=== PATIENT | male | born 1965 | race Caucasian/White ===

== ENCOUNTER 2021-01-04 23:35 | Inpatient (IN) | payer OTHER, BC ==
[2021-01-05] MEDS ORDERED: Ondansetron PF 4 MG/2 ML Vial ONE ×2 (01:17→15:25)
[2021-01-05] MEDS ORDERED: Morphine 4 MG/ML VIAL ONE (01:17)
[2021-01-05 01:39] LABS: ALT (SGPT) 18 U/L (8-55); AST (SGOT) 19 U/L (5-34); Albumin 3.8 g/dL (3.5-5.0); Alkaline Phosphatase 50 U/L (40-110); Anion Gap 12 mmol/L (10-20); BUN (Urea Nitrogen) 19 mg/dL (8.4-25.7); Bilirubin, Total 0.4 mg/dL (0.2-1.2); Calc. Creatinine Clearance 0 mL/min (70-130); Calcium 9.2 mg/dL (7.8-10.44); Carbon Dioxide 23 mmol/L (22-29); Chloride 104 mmol/L (98-107); Globulin 2.8 g/dL (2.4-3.5); Glucose 124 mg/dL (70-105); Potassium 3.6 mmol/L (3.5-5.1); Protein, Total 6.6 g/dL (6.0-8.3); Sodium 135 mmol/L (136-145)
[2021-01-05 01:41] LABS: #Eosinphils 0.1 thou/uL (0.0-0.7); #Lymphocytes 1.5 thou/uL (1.20-3.40); #Monocytes 1.3 thou/uL (0.11-0.59); #Neutrophils 11.7 thou/uL (1.40-6.50); %Basophils 0.3 % (0.0-1.0); %Eosinophils 0.6 % (0.0-10.0); %Lymphocytes 10.3 % (21.0-51.0); %Monocytes 8.9 % (0.0-10.0); Hemoglobin 15.5 g/dL (14.0-18.0); Mean Corpuscular Hemoglobin 32.7 pg (27.0-31.0); Mean Corpuscular Volume 90.7 fL (78.0-98.0); Platelet Count 254 thou/uL (130-400); RBC Distribution Width 11.9 % (11.5-14.5); Red Blood Cell (RBC) Count 4.73 mill/uL (4.70-6.10); White Blood Cell (WBC) Count 14.6 thou/uL (4.8-10.8)
[2021-01-05] MEDS ORDERED: Ondansetron PF 4 MG/2 ML Vial IVP PRN (02:11)
[2021-01-05] MEDS ORDERED: Dextrose 5% in Water 1,000 ML IV PRN (02:11)
[2021-01-05] MEDS ORDERED: Insulin Regular 300 UNITS/3 ML VIAL SC PRN ×2 (02:11)
[2021-01-05] MEDS ORDERED: hydrALAZINE 20 MG/ML VIAL SLOW IVP PRN (02:11)
[2021-01-05] MEDS ORDERED: Dextrose 50% Abboject 50 ML SYRINGE SLOW IVP PRN (02:11)
[2021-01-05] MEDS ORDERED: traMADol HCl 50 MG TAB PO PRN (02:15)
[2021-01-05] MEDS ORDERED: Cyclobenzaprine 10 MG TAB PO PRN (02:15)
[2021-01-05] MEDS: Acetaminophen 500 MG TAB PO SCH ×4 (05:10→23:09)
[2021-01-05] MEDS: Ibuprofen 200 MG TAB PO SCH ×3 (05:11→20:44)
[2021-01-05] MEDS: traMADol HCl 50 MG TAB PO PRN ×2 (05:12→23:08)
[2021-01-05] MEDS: Morphine 4 MG/ML VIAL SLOW IVP PRN ×2 (05:56→08:48)
[2021-01-05 07:01] LABS: SARS-CoV-2 NAA Rapid Test Not Detected (NotDetected)
[2021-01-05] MEDS: Sodium Chloride 0.9% 1,000 ML IV SCH ×3 (07:28→23:12)
[2021-01-05 07:48] VITALS: BMI 32.1
[2021-01-05] MEDS: Gabapentin 300 MG CAP PO SCH ×3 (07:57→20:43)
[2021-01-05] MEDS: Famotidine 20 MG TAB PO SCH ×2 (07:57→20:43)
[2021-01-05] MEDS ORDERED: ceFAZolin Sodium/D5W 2 GM in Premix Bag 1 BAG IVPB SCH ×2 (09:00→22:00)
[2021-01-05] MEDS: Senokot S 8.6-50 MG TAB PO SCH ×2 (11:15→20:44)
[2021-01-05] MEDS: Polyethylene Glycol 3350 17 GM Packet PO SCH (11:15)
[2021-01-05] MEDS ORDERED: ceFAZolin 2 GM/DEX 5% 100 ML BAG ONE (14:06)
[2021-01-05] MEDS ORDERED: Bupivacaine PF 0.5% 30 ML VIAL ONE (14:59)
[2021-01-05] MEDS ORDERED: Neomycin-Polymyxin 1 ML AMP ONE (14:59)
[2021-01-05] MEDS ORDERED: Fentanyl 100 MCG/2 ML VIAL ONE (15:22)
[2021-01-05] MEDS ORDERED: PROPOFOL 200 MG/20 ML VIAL ONE (15:25)
[2021-01-05] MEDS ORDERED: Lidocaine 1% PF 5 ML VIAL ONE (15:25)
[2021-01-05] MEDS: CEFAZOLIN 2 GM in Premix Bag 1 BAG IVPB SCH (20:45)
[2021-01-06] MEDS: Ibuprofen 200 MG TAB PO SCH ×3 (04:54→20:38)
[2021-01-06] MEDS: Acetaminophen 500 MG TAB PO SCH ×3 (04:54→17:34)
[2021-01-06] MEDS: CEFAZOLIN 2 GM in Premix Bag 1 BAG IVPB SCH ×2 (04:55→14:10)
[2021-01-06 05:38] LABS: #Lymphocytes 1.2 thou/uL (1.20-3.40); #Monocytes 1.2 thou/uL (0.11-0.59); %Basophils 0.1 % (0.0-1.0); %Eosinophils 0.2 % (0.0-10.0); %Lymphocytes 7.2 % (21.0-51.0); %Monocytes 7.4 % (0.0-10.0); Hemoglobin 14.5 g/dL (14.0-18.0); Mean Corpuscular HGB CONC 32.5 g/dL (32.0-36.0); Mean Corpuscular Hemoglobin 30.2 pg (27.0-31.0); Mean Platelet Volume 8.2 fL (7.4-10.4); Platelet Count 268 thou/uL (130-400); RBC Distribution Width 11.9 % (11.5-14.5); Red Blood Cell (RBC) Count 4.78 mill/uL (4.70-6.10); White Blood Cell (WBC) Count 16.5 thou/uL (4.8-10.8)
[2021-01-06 06:05] LABS: Anion Gap 14 mmol/L (10-20); BUN (Urea Nitrogen) 23 mg/dL (8.4-25.7); Calc. Creatinine Clearance 97 mL/min (70-130); Carbon Dioxide 22 mmol/L (22-29); Chloride 104 mmol/L (98-107); Glucose 139 mg/dL (70-105); Magnesium 2.1 mg/dL (1.6-2.6); Phosphorus 4.9 mg/dL (2.3-4.7); Potassium 4.4 mmol/L (3.5-5.1); Sodium 136 mmol/L (136-145)
[2021-01-06] MEDS: Polyethylene Glycol 3350 17 GM Packet PO SCH (08:44)
[2021-01-06] MEDS: Senokot S 8.6-50 MG TAB PO SCH ×2 (08:44→20:38)
[2021-01-06] MEDS: Famotidine 20 MG TAB PO SCH ×2 (08:44→20:38)
[2021-01-06] MEDS: Gabapentin 300 MG CAP PO SCH ×3 (08:45→20:38)
[2021-01-06] MEDS: traMADol HCl 50 MG TAB PO PRN ×2 (08:50→16:27)
[2021-01-06] MEDS ORDERED: Enoxaparin Sodium 40 MG/0.4 ML SYRINGE SC SCH (13:30)
[2021-01-07] MEDS: Acetaminophen 500 MG TAB PO SCH ×3 (00:17→13:47)
[2021-01-07] MEDS: Ibuprofen 200 MG TAB PO SCH ×2 (05:07→13:46)
[2021-01-07] MEDS ORDERED: Enoxaparin Sodium 40 MG/0.4 ML SYRINGE SC SCH (09:00)
[2021-01-07] MEDS ORDERED: Loratadine 10 MG TAB PO SCH (09:00)
[2021-01-07] MEDS ORDERED: DULoxetine 60 MG CAP PO SCH (09:00)
[2021-01-07] MEDS: Gabapentin 300 MG CAP PO SCH ×2 (09:53→15:33)
[2021-01-07] MEDS: Famotidine 20 MG TAB PO SCH (09:53)
[2021-01-07] MEDS: traMADol HCl 50 MG TAB PO PRN (09:54)
[2021-01-07] MEDS: Senokot S 8.6-50 MG TAB PO SCH (09:57)
[2021-01-07] MEDS: Polyethylene Glycol 3350 17 GM Packet PO SCH (09:57)
[2021-01-07 16:50] VITALS: BP 152/64; TEMP 98.1
[2021-01-07] MEDS ORDERED: Simvastatin 10 MG TAB PO SCH (17:00)
== END 2021-01-07 16:40 | disposition home or self-care (01) | DRG 494 ==
LOC: ERS 23:35 → SURG B 01-05 02:16
PROVIDERS: ADMIT Specialist; ATTEND Specialist
PROC: 0QSG04Z Reposition Right Tibia with Internal Fixation Device, Open Approach (ICD-10-PCS; principal; 2021-01-05)
DX: S82.841A Displaced bimalleolar fracture of right lower leg, initial encounter for closed fracture (principal); S82.831A Other fracture of upper and lower end of right fibula, initial encounter for closed fracture; W19.XXXA Unspecified fall, initial encounter; E10.9 Type 1 diabetes mellitus without complications; I10 Essential (primary) hypertension; G47.33 Obstructive sleep apnea (adult) (pediatric); F41.9 Anxiety disorder, unspecified; Z20.822 Contact with and (suspected) exposure to COVID-19; Z90.49 Acquired absence of other specified parts of digestive tract; Y92.39 Other specified sports and athletic area as the place of occurrence of the external cause; Z98.52 Vasectomy status
CPT/HCPCS: 29515; 36415; 36416; 71045; 76000; 80048; 80053; 80307; 83735; 84100; 85025; 93005; 96374; 96375; C1713; G0390; J0690; J1650; J2270; J2405; J2704; J3010; J7050; S0020; U0002

== ENCOUNTER 2021-06-23 10:23 | Day surgery (SDC) | payer BC ==
[2021-06-18 12:39] VITALS: BMI 29.0
[2021-06-23] MEDS ORDERED: Levofloxacin 500 mg/D5W 100 ml Premix Bag ONE (11:29)
[2021-06-23] MEDS ORDERED: Clindamycin/D5W 900 mg/50 ml Premix Bag ONE (11:59)
[2021-06-23] MEDS ORDERED: Midazolam HCl 2 mg/2 ml Vial ONE (12:10)
[2021-06-23] MEDS ORDERED: Fentanyl 100 MCG/2 ML VIAL ONE ×3 (12:10→13:44)
[2021-06-23] MEDS ORDERED: Ondansetron PF 4 MG/2 ML Vial ONE (12:49)
[2021-06-23] MEDS ORDERED: Dexamethasone 20 MG/5 ML VIAL ONE (12:49)
[2021-06-23] MEDS ORDERED: PROPOFOL 200 MG/20 ML VIAL ONE (12:49)
[2021-06-23] MEDS ORDERED: PHENYLEPHRINE-NS 100 MCG/ML 10 ML SYRINGE ONE (12:49)
[2021-06-23] MEDS ORDERED: Ropivacaine 0.5% HCl/PF (150 MG/30 ML VIAL) ONE (12:49)
[2021-06-23] MEDS ORDERED: Lidocaine 1% PF 5 ML VIAL ONE (12:49)
[2021-06-23] MEDS ORDERED: Bupivacaine PF 0.5% 30 ML VIAL ONE (13:57)
== END 2021-06-23 15:45 | disposition home or self-care (01) ==
LOC: SDC 10:23
PROVIDERS: ATTEND Orthopaedic Surgery
PROC: 0QSG04Z Reposition Right Tibia with Internal Fixation Device, Open Approach (ICD-10-PCS; principal; 2021-06-23)
PROC: 0SPF04Z Removal of Internal Fixation Device from Right Ankle Joint, Open Approach (ICD-10-PCS; principal; 2021-06-23)
PROC: 3E0T3BZ Introduction of Anesthetic Agent into Peripheral Nerves and Plexi, Percutaneous Approach (ICD-10-PCS; principal; 2021-06-23)
PROC: 0QUG07Z Supplement Right Tibia with Autologous Tissue Substitute, Open Approach (ICD-10-PCS; principal; 2021-06-23)
DX: S82.841K Displaced bimalleolar fracture of right lower leg, subsequent encounter for closed fracture with nonunion (principal); T84.84XA Pain due to internal orthopedic prosthetic devices, implants and grafts, initial encounter; E10.9 Type 1 diabetes mellitus without complications; I10 Essential (primary) hypertension; G47.33 Obstructive sleep apnea (adult) (pediatric); Z79.84 Long term (current) use of oral hypoglycemic drugs; Z79.899 Other long term (current) drug therapy; Z88.0 Allergy status to penicillin; Z96.41 Presence of insulin pump (external) (internal); X58.XXXD Exposure to other specified factors, subsequent encounter; Y79.1 Therapeutic (nonsurgical) and rehabilitative orthopedic devices associated with adverse incidents
CPT/HCPCS: 76000; C1713; J1100; J1956; J2250; J2405; J2704; J2795; J3010; J3490; S0020

== ENCOUNTER 2023-05-18 08:30 | Inpatient (IN) | payer BC ==
[2023-05-18 09:11] LABS: Hemoglobin 14.3 g/dL (13.5-17.5); Mean Corpuscular HGB CONC 35.8 g/dL (32.0-36.0); Mean Corpuscular Hemoglobin 31.5 pg (27.0-33.0); Mean Corpuscular Volume 88.1 fl (81.2-95.1); Mean Platelet Volume 10.8 fl (7.4-10.4); Platelet Count 196 10x3/uL (150-450); RBC Distribution Width 12.4 % (11.5-14.5); Red Blood Cell (RBC) Count 4.54 10x6/uL (4.32-5.72); White Blood Cell (WBC) Count 6.2 10x3/uL (3.5-10.5)
[2023-05-18 09:46] LABS: Anion Gap 13 mmol/L (10-20); BUN (Urea Nitrogen) 20 mg/dL (8.4-25.7); Calc. Creatinine Clearance 0 mL/min (70-130); Calcium 8.8 mg/dL (7.8-10.44); Carbon Dioxide 23 mmol/L (22-29); Chloride 108 mmol/L (98-107); Estimated GFR 100; Glucose 172 mg/dL (70-105); Potassium 3.9 mmol/L (3.5-5.1); Sodium 140 mmol/L (136-145)
[2023-05-19] MEDS ORDERED: Albumin 5% 500 ML ONE (06:40)
[2023-05-19] MEDS ORDERED: PHENYLEPHRINE-NS 100 MCG/ML 10 ML SYRINGE ONE (06:40)
[2023-05-19] MEDS ORDERED: Midazolam HCl 2 mg/2 ml Vial ONE ×4 (07:02→11:19)
[2023-05-19] MEDS ORDERED: Heparin 10,000 UNITS/1 ML VIAL 30,000 UNITS in Sodium Chloride 0.9% 1,000 ML FS SCH (07:15)
[2023-05-19] MEDS ORDERED: Fentanyl 250 MCG/5 ML VIAL ONE ×2 (07:28→09:18)
[2023-05-19] MEDS ORDERED: PROPOFOL 20 ML ONE ×2 (07:28→09:17)
[2023-05-19] MEDS ORDERED: CEFAZOLIN 2 GM VIAL ONE (07:30)
[2023-05-19] MEDS ORDERED: Sodium Chloride 0.9% 100 ML ONE (07:30)
[2023-05-19] MEDS ORDERED: Aminocaproic Acid 5 GM/20 ML VIAL ONE (08:17)
[2023-05-19] MEDS ORDERED: Cardioplegic Soln 1,000 ML BAG ONE (08:17)
[2023-05-19] MEDS ORDERED: Magnesium 5 GM/10 ML VIAL ONE (08:17)
[2023-05-19] MEDS ORDERED: Lidocaine 2% PF 100 mg/5 ml Syringe ONE (08:17)
[2023-05-19] MEDS ORDERED: Thrombin 5000 UNITS/5 ML VIAL ONE (08:17)
[2023-05-19] MEDS ORDERED: Heparin 30,000 units/30 ml VIAL ONE (08:17)
[2023-05-19] MEDS ORDERED: Mannitol 12.5 GM/50 ML ONE (08:17)
[2023-05-19] MEDS ORDERED: Protamine Sulfate 250 MG/25 ML VIAL ONE (08:17)
[2023-05-19] MEDS ORDERED: Potassium Chloride 60 mEq (30 mL) VIAL ONE (08:17)
[2023-05-19] MEDS ORDERED: Heparin 5,000 UNITS/ML VIAL ONE (08:17)
[2023-05-19] MEDS ORDERED: Calcium Chloride 1 GM/10 ML Abboject SYRINGE ONE (08:17)
[2023-05-19] MEDS ORDERED: Sodium Bicarb 50 mEq/50 ML VIAL ONE (08:17)
[2023-05-19] MEDS ORDERED: Papaverine 60 MG/2 ML VIAL ONE (08:17)
[2023-05-19] MEDS ORDERED: Vancomycin 1 GM VIAL ONE (08:17)
[2023-05-19] MEDS ORDERED: Esmolol 100 MG/10 ML VIAL ONE (08:17)
[2023-05-19] MEDS ORDERED: Insulin Regular 300 UNITS/3 ML VIAL ONE (08:31)
[2023-05-19] MEDS ORDERED: Rocuronium Bromide 10 MG/ML (10ML VIAL) ONE (09:38)
[2023-05-19] MEDS ORDERED: Bisacodyl 5 MG TAB PO PRN (11:28)
[2023-05-19] MEDS ORDERED: niCARdipine 25 MG in Sodium Chloride 0.9% 250 ML 250 ML IVPB PRN (11:28)
[2023-05-19] MEDS ORDERED: Ipratropium/Albuterol 3 ML NEB NEB PRN (11:28)
[2023-05-19] MEDS ORDERED: Nitroglycerin 50 MG/250 ML BOT 250 ML IVPB PRN (11:28)
[2023-05-19] MEDS ORDERED: Mag-Al 1200 mg/1200 mg/30 ML UDCUP PO PRN (11:28)
[2023-05-19] MEDS ORDERED: hydrALAZINE 20 MG/ML VIAL SLOW IVP PRN (11:28)
[2023-05-19] MEDS ORDERED: Benzonatate 100 MG CAP PO PRN (11:28)
[2023-05-19] MEDS ORDERED: DOPamine 400 MG/D5W 250 ML 250 ML IVPB PRN (11:28)
[2023-05-19] MEDS ORDERED: Bisacodyl 10 MG SUPP PR PRN (11:28)
[2023-05-19] MEDS ORDERED: fentaNYL 50 mcg/mL 1 mL Vial SLOW IVP PRN (11:28)
[2023-05-19] MEDS ORDERED: Guaifenesin DM 100-10/5 ML UDCUP PO PRN (11:28)
[2023-05-19] MEDS ORDERED: Morphine 2 MG/ML VIAL SLOW IVP PRN (11:28)
[2023-05-19] MEDS ORDERED: Promethazine HCl 25 MG/ML VIAL IM PRN (11:28)
[2023-05-19] MEDS: Lactated Ringer's 1,000 ML IV SCH (11:45)
[2023-05-19 11:48] LABS: Actual Bicarbonate (HCO3a) 22.2 mEq/L (22-28); Base Excess (BEa) -1.7 mEq/L (-2.0 to +3.0); Calcium, Ionized (arterial) 1.11 mmol/L (1.12-1.30); Carboxyhemoglobin (COHb) 0.1 gm% (0.0-3.0); Hematocrit-ABG 36 % (42.0-52.0); Hemoglobin (Hb) 12.3 g/dL (14.0-18.0); O2 Tension (PaO2), arterial 141.9 mmHg (80.0-100.0); pH, Arterial 7.421 (7.35-7.45)
[2023-05-19 11:50] LABS: Puncture Site Arterial Line
[2023-05-19 11:55] LABS: #Eosinphils 0.1 thou/uL (0.0-0.7); #Monocytes 0.8 thou/uL (0.11-0.59); #Neutrophils 7.5 thou/uL (1.40-6.50); %Basophils 0.3 % (0.0-1.0); %Lymphocytes 10.4 % (21.0-51.0); %Monocytes 8.3 % (0.0-10.0); %Neutrophils 78.4 % (42.0-75.0); Hematocrit 32.8 % (42.0-52.0); Hemoglobin 11.4 g/dL (14.0-18.0); Mean Corpuscular HGB CONC 34.8 g/dL (32.0-36.0); Mean Corpuscular Hemoglobin 31.6 pg (27.0-31.0); Mean Corpuscular Volume 90.9 fl (78.0-98.0); Mean Platelet Volume 10.6 fL (7.4-10.4); Platelet Count 121 10x3/uL (130-400); RBC Distribution Width 12.3 % (11.5-14.5); Red Blood Cell (RBC) Count 3.61 mill/uL (4.70-6.10); White Blood Cell (WBC) Count 9.6 10x3/uL (4.8-10.8)
[2023-05-19 12:10] LABS: INR-International Normal Ratio 1.4; PTT 30.3 sec (22.9-36.1); Prothrombin Time 17.4 sec (12.0-14.7)
[2023-05-19 12:12] LABS: Anion Gap 7 mmol/L (10-20); BUN (Urea Nitrogen) 14 mg/dL (8.4-25.7); Calc. Creatinine Clearance 129 mL/min (70-130); Calcium 7.7 mg/dL (7.8-10.44); Carbon Dioxide 23 mmol/L (22-29); Chloride 113 mmol/L (98-107); Estimated GFR 107; Glucose 121 mg/dL (70-105); Potassium 3.9 mmol/L (3.5-5.1); Sodium 139 mmol/L (136-145)
[2023-05-19 12:14] VITALS: BMI 28.6
[2023-05-19] MEDS ORDERED: Insulin Regular 300 UNITS/3 ML VIAL SC PRN (12:30)
[2023-05-19] MEDS: Post-Op Insulin Drip Protocol IVPB ONE (12:37)
[2023-05-19] MEDS: Potassium Chloride 20 MEQ (100 mL) BAG IVPB PRN (12:38)
[2023-05-19] MEDS: Albumin 5% 12.5 GM (250 mL) BOT IVPB PRN ×2 (12:46→19:57)
[2023-05-19] MEDS: NOREPINEPHRINE 8 MG/250 ML-D5W 250 ML IVPB PRN (13:29)
[2023-05-19 14:08] LABS: Actual Bicarbonate (HCO3a) 18.2 mEq/L (22-28); Base Excess (BEa) -6.7 mEq/L (-2.0 to +3.0); CO2 Tension 34.5 mmHg (35.0-45.0); Calcium, Ionized (arterial) 1.08 mmol/L (1.12-1.30); Carboxyhemoglobin (COHb) 0.3 gm% (0.0-3.0); Hematocrit-ABG 37 % (42.0-52.0); Hemoglobin (Hb) 12.5 g/dL (14.0-18.0); O2 Tension (PaO2), arterial 149.7 mmHg (80.0-100.0); Potassium - ABG Lab 4.61 mmol/L (3.70-5.30); pH, Arterial 7.341 (7.35-7.45)
[2023-05-19 14:18] LABS: ALV-art Gradient 92.375 mmHg (0-20); Puncture Site Arterial Line
[2023-05-19] MEDS: fentaNYL 50 mcg/mL 1 mL Vial SLOW IVP PRN (14:25)
[2023-05-19] MEDS: Ondansetron PF 4 MG/2 ML Vial IVP PRN (15:16)
[2023-05-19] MEDS: HYDROcodone/Acetaminophen 5/325 mg Tablet PO PRN ×2 (15:16→20:50)
[2023-05-19] MEDS: CEFAZOLIN 2 GM in Sodium Chloride 0.9% 100 ML IVPB SCH (15:17)
[2023-05-19 17:23] LABS: Hematocrit 36.1 % (42.0-52.0); Hemoglobin 12.1 g/dL (14.0-18.0)
[2023-05-19] MEDS: HUMULIN R 100 UNITS in Sodium Chloride 0.9% 100 ML IVPB SCH (17:23)
[2023-05-19 17:41] LABS: Potassium 5.3 mmol/L (3.5-5.1)
[2023-05-19] MEDS: Famotidine/PF 20 mg/2ml Vial SLOW IVP SCH (20:41)
[2023-05-19] MEDS: Atorvastatin Calcium 20 MG TAB PO SCH (20:41)
[2023-05-19] MEDS: Hetastarch 6% 500 ML 500 ML IVPB PRN (23:01)
[2023-05-20 03:56] LABS: #Eosinphils 0.3 thou/uL (0.0-0.7); #Monocytes 1.2 thou/uL (0.11-0.59); #Neutrophils 8.2 thou/uL (1.40-6.50); %Basophils 0.4 % (0.0-1.0); %Eosinophils 2.7 % (0.0-10.0); %Lymphocytes 9.1 % (21.0-51.0); %Monocytes 10.9 % (0.0-10.0); %Neutrophils 76.2 % (42.0-75.0); Hemoglobin 10.2 g/dL (14.0-18.0); Mean Corpuscular Hemoglobin 31.2 pg (27.0-31.0); Mean Corpuscular Volume 91.7 fl (78.0-98.0); Mean Platelet Volume 10.8 fL (7.4-10.4); Platelet Count 145 10x3/uL (130-400); RBC Distribution Width 12.7 % (11.5-14.5); Red Blood Cell (RBC) Count 3.27 mill/uL (4.70-6.10); White Blood Cell (WBC) Count 10.7 10x3/uL (4.8-10.8)
[2023-05-20 04:46] LABS: Anion Gap 10 mmol/L (10-20); BUN (Urea Nitrogen) 21 mg/dL (8.4-25.7); Calc. Creatinine Clearance 103 mL/min (70-130); Calcium 7.7 mg/dL (7.8-10.44); Carbon Dioxide 23 mmol/L (22-29); Chloride 110 mmol/L (98-107); Estimated GFR 98; Glucose 111 mg/dL (70-105); Potassium 3.8 mmol/L (3.5-5.1); Sodium 139 mmol/L (136-145)
[2023-05-20] MEDS: Polyethylene Glycol 3350 17 GM Packet PO SCH (09:07)
[2023-05-20] MEDS: Aspirin Chewable 81 MG TAB PO SCH (09:08)
[2023-05-20] MEDS: Empagliflozin 10 MG TAB PO SCH (09:08)
[2023-05-20] MEDS ORDERED: Insulin Glargine 30 UNITS/0.3 ML VIAL SC PRN (12:19)
[2023-05-21 04:16] LABS: #Monocytes 1.2 thou/uL (0.11-0.59); #Neutrophils 7.5 thou/uL (1.40-6.50); %Basophils 0.3 % (0.0-1.0); %Eosinophils 0.1 % (0.0-10.0); %Lymphocytes 13.9 % (21.0-51.0); %Monocytes 11.7 % (0.0-10.0); %Neutrophils 73.3 % (42.0-75.0); Hematocrit 29.2 % (42.0-52.0); Mean Corpuscular HGB CONC 34.2 g/dL (32.0-36.0); Mean Corpuscular Hemoglobin 31.5 pg (27.0-31.0); Mean Corpuscular Volume 92.1 fl (78.0-98.0); Mean Platelet Volume 10.7 fL (7.4-10.4); Platelet Count 124 10x3/uL (130-400); RBC Distribution Width 12.8 % (11.5-14.5); Red Blood Cell (RBC) Count 3.17 mill/uL (4.70-6.10); White Blood Cell (WBC) Count 10.2 10x3/uL (4.8-10.8)
[2023-05-21 04:44] LABS: Anion Gap 9 mmol/L (10-20); BUN (Urea Nitrogen) 20 mg/dL (8.4-25.7); Calc. Creatinine Clearance 117 mL/min (70-130); Carbon Dioxide 26 mmol/L (22-29); Chloride 106 mmol/L (98-107); Estimated GFR 103; Glucose 106 mg/dL (70-105); Potassium 3.9 mmol/L (3.5-5.1); Sodium 137 mmol/L (136-145)
[2023-05-21] MEDS ORDERED: Artificial Tear Sol 15 ML BOT EA EYE PRN (07:29)
[2023-05-21] MEDS ORDERED: Mineral Oil ENEMA PR PRN (07:29)
[2023-05-21] MEDS ORDERED: Nitroglycerin 0.4 MG TAB (25 Tab Bottle) SL PRN (07:29)
[2023-05-21] MEDS: Potassium Chloride 10 MEQ TAB PO SCH (08:18)
[2023-05-21] MEDS: Furosemide 40 MG TAB PO SCH (08:18)
[2023-05-21] MEDS: Acetaminophen 325 MG TAB PO PRN (19:39)
[2023-05-23 07:56] VITALS: TEMP 98
[2023-05-23 11:26] VITALS: BP 144/70
[2023-05-23] MEDS ORDERED: Metoprolol Tartrate 25 MG TAB PO SCH (21:00)
[2023-05-26 08:25] LABS: Actual Bicarbonate (HCO3a) 20.4 mEq/L (22-28); Analyzer IN Cardio OR; Base Excess (BEa) -3.2 mEq/L (-2.0 to +3.0); CO2 Tension 32.3 mmHg (35.0-45.0); Calcium, Ionized (arterial) 1.08 mmol/L (1.12-1.30); Carboxyhemoglobin (COHb) 0.2 gm% (0.0-3.0); Hematocrit-ABG 38 % (42.0-52.0); O2 Tension (PaO2), arterial 466.8 mmHg (80.0-100.0); Potassium - ABG Lab 3.76 mmol/L (3.70-5.30); pH, Arterial 7.418 (7.35-7.45)
[2023-05-26 08:25] LABS: Analyzer IN Cardio OR; Base Excess (BEa) -0.9 mEq/L (-2.0 to +3.0); CO2 Tension 40.8 mmHg (35.0-45.0); Calcium, Ionized (arterial) 1.11 mmol/L (1.12-1.30); Carboxyhemoglobin (COHb) 0.6 gm% (0.0-3.0); Hematocrit-ABG 40 % (42.0-52.0); Hemoglobin (Hb) 13.6 g/dL (14.0-18.0); O2 Tension (PaO2), arterial 326.8 mmHg (80.0-100.0); Potassium - ABG Lab 3.31 mmol/L (3.70-5.30); pH, Arterial 7.388 (7.35-7.45)
[2023-05-26 08:26] LABS: Actual Bicarbonate (HCO3a) 21.4 mEq/L (22-28); Analyzer IN Cardio OR; Base Excess (BEa) -2.2 mEq/L (-2.0 to +3.0); CO2 Tension 32.5 mmHg (35.0-45.0); Calcium, Ionized (arterial) 1.12 mmol/L (1.12-1.30); Carboxyhemoglobin (COHb) 0.3 gm% (0.0-3.0); Hematocrit-ABG 31 % (42.0-52.0); Hemoglobin (Hb) 10.7 g/dL (14.0-18.0); O2 Tension (PaO2), arterial 441.2 mmHg (80.0-100.0); pH, Arterial 7.436 (7.35-7.45)
[2023-05-26 08:26] LABS: Actual Bicarbonate (HCO3a) 20.4 mEq/L (22-28); Analyzer IN Cardio OR; Base Excess (BEa) -4.2 mEq/L (-2.0 to +3.0); CO2 Tension 35.6 mmHg (35.0-45.0); Calcium, Ionized (arterial) 1.01 mmol/L (1.12-1.30); Carboxyhemoglobin (COHb) 0.3 gm% (0.0-3.0); Hematocrit-ABG 31 % (42.0-52.0); Hemoglobin (Hb) 10.7 g/dL (14.0-18.0); Potassium - ABG Lab 3.66 mmol/L (3.70-5.30); pH, Arterial 7.376 (7.35-7.45)
[2023-05-26 08:26] LABS: Actual Bicarbonate (HCO3a) 22.8 mEq/L (22-28); Analyzer IN Cardio OR; Base Excess (BEa) -2.2 mEq/L (-2.0 to +3.0); CO2 Tension 40.2 mmHg (35.0-45.0); Calcium, Ionized (arterial) 1.06 mmol/L (1.12-1.30); Carboxyhemoglobin (COHb) 0.3 gm% (0.0-3.0); Hematocrit-ABG 31 % (42.0-52.0); Hemoglobin (Hb) 10.5 g/dL (14.0-18.0); O2 Tension (PaO2), arterial 331.4 mmHg (80.0-100.0); Potassium - ABG Lab 4.02 mmol/L (3.70-5.30); pH, Arterial 7.372 (7.35-7.45)
[2023-05-26 08:27] LABS: Puncture Site Arterial Line
[2023-05-26 08:27] LABS: Puncture Site Arterial Line
[2023-05-26 08:27] LABS: Puncture Site Arterial Line
[2023-05-26 08:28] LABS: Puncture Site Arterial Line
[2023-05-26 08:28] LABS: Puncture Site Arterial Line
== END 2023-05-23 12:45 | disposition home or self-care (01) | DRG 236 ==
LOC: SURG A 05-19 06:14 → CCU 05-19 10:43
PROVIDERS: ADMIT Thoracic Surgery (Cardiothoracic Vascular Surgery); ATTEND Thoracic Surgery (Cardiothoracic Vascular Surgery)
PROC: 02100Z9 Bypass Coronary Artery, One Artery from Left Internal Mammary, Open Approach (ICD-10-PCS; principal; 2023-05-19)
PROC: 021109W Bypass Coronary Artery, Two Arteries from Aorta with Autologous Venous Tissue, Open Approach (ICD-10-PCS; 2023-05-19)
PROC: 06BQ0ZZ Excision of Left Saphenous Vein, Open Approach (ICD-10-PCS; 2023-05-19)
PROC: 5A1221Z Performance of Cardiac Output, Continuous (ICD-10-PCS; 2023-05-19)
PROC: 02L70CK Occlusion of Left Atrial Appendage with Extraluminal Device, Open Approach (ICD-10-PCS; 2023-05-19)
DX: I25.10 Atherosclerotic heart disease of native coronary artery without angina pectoris (principal); E10.9 Type 1 diabetes mellitus without complications; I10 Essential (primary) hypertension; G47.33 Obstructive sleep apnea (adult) (pediatric); E16.2 Hypoglycemia, unspecified; Z79.4 Long term (current) use of insulin; Z79.899 Other long term (current) drug therapy
CPT/HCPCS: 36415; 36416; 36430; 71045; 80048; 82805; 82947; 85025; 85027; 85610; 85730; 86850; 86900; 86901; 93005; 93010; 93798; 94002; A4311; A4648; C1751; J1642; J1644; J1815; J2001; J2150; J2250; J2405; J2440; J2704; J2720; J3010; J3370; J3475; J3480; J3490; J7120; P9045; S0017; S0028

== ENCOUNTER 2023-10-25 14:23 | Outpatient (CLI) | payer BC | END 2023-10-25 14:24 | disposition home or self-care (01) | LOC: SCSRAD 14:23 | PROVIDERS: ATTEND Family Medicine | DX: M47.22 Other spondylosis with radiculopathy, cervical region (principal) | CPT/HCPCS: 72050 ==